=== PATIENT | female | born 1980 | race Caucasian/White ===

== ENCOUNTER 2020-10-16 08:58 | Emergency (ER) | payer MEDICAID ==
--- NOTE | 2020-10-16 09:32 | EDM.PDOC ---
ED HPI GENERAL MEDICAL PROBLEM - General Chief Complaint: Respiratory Problem Stated Complaint: SOB/NECK PAIN Time Seen by Provider: 10/16/20 09:32 Source of Information: Reports: Patient History Limitations: Reports: No Limitations - History of Present Illness INITIAL COMMENTS - FREE TEXT/NARRATIVE: 39-year-old female who is quite tearful presents to the ED complaining of shor tness of breath and nonproductive cough. She states this is been going on for 6 weeks or more. No defined history of asthma. She does not believe that she has wheezing with increased smoke in the air recently. She is identifies a rotten egg smell or seam sewer gas smell in her apartment where she resides and she believes this may be irritating her lungs. She has not had COVID-19 illness nor has she had the vaccination. Denies fever or chills. Second complaint was painful right calf which occurred while walking. Making her limp and she was concerned she may have a blood clot in her right leg. Patient is very histrionic. She has chronic epigastric abdominal pain. Chronic constipation. Complaining of headache and quite bad cervical neck pain at this time. Onset: Unknown/Unsure (Neck pain is been much worse the last 3 days. Dyspnea and cough has been going on for a lengthy period of time.) Duration: Week(s):, Chronic, Getting Worse Location: Reports: Neck (Creased cervical neck pain causing headache base of skull.), Chest (Nonproductive cough with associated feeling of dyspnea.), Lower Extremity, Right (Right lower extremity pain mid calf and she has concerns about a blood clot.) Quality: Reports: Ache, Throbbing Severity: Moderate Improves with: Reports: None Worsens with: Reports: Other Context: Reports: Other (Sudden onset of pain medial calf yesterday while walking. Increased cervical neck pain x3 days. Cough nonproductive). Denies: Activity (Condition worsens with movement particular trying to walk limping right leg.), Exercise, Lifting, Sick Contact, Trauma Associated Symptoms: Reports: Cough, Headaches, Loss of Appetite, Malaise, Nausea/Vomiting, Shortness of Breath, Weakness. 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 She states she does not use the phentermine every day as it will keep her awake all night.) Neck Pain Score (Numeric/FACES): 10 - Related Data Allergies Allergy/AdvReac Type Severity Reaction Status Date / Time No Known Allergies Allergy Verified 10/16/20 09:11 Home Meds: Home Meds Cholecalciferol (Vitamin D3) [Vitamin D3] 5,000 unit PO DAILY 10/16/20 [History] Famotidine [Pepcid] 20 mg PO BEDTIME #30 tab 10/16/20 [Rx] Multivitamin 1 each PO DAILY 10/16/20 [History] Ondansetron [Zofran ODT] 4 mg PO Q6H PRN 10/16/20 [History] Phentermine HCl 37.5 mg PO DAILY 10/16/20 [History] polyethylene glycoL 3350 [MiraLAX] 17 gm PO DAILY #1 container 10/16/20 [Rx] predniSONE [Prednisone] 20 mg PO BID #15 tablet 10/16/20 [Rx] Past Medical History Respiratory History: Reports: Asthma Gastrointestinal History: Reports: Celiac Disease, Chronic Constipation, GERD Genitourinary History: Reports: STD 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: stillborn in 2007 Musculoskeletal History: Reports: Neck Pain, Chronic Psychiatric History: Reports: Anxiety, Depression Endocrine/Metabolic History: Reports: Obesity/BMI 30+, Vitamin D Deficiency Oncologic (Cancer) History: Reports: Cervix Other Oncologic History: "scraped off cervical cancer/loop procedure" in [place] around 20 years ago - Infectious Disease History Infectious Disease History: Reports: Chicken Pox, Herpes - Past Surgical History GI Surgical History: Reports: Cholecystectomy Female Surgical History: Reports: Breast Biopsy Social & Family History - Tobacco Use Tobacco Use Status *Q: Never Tobacco User Second Hand Smoke Exposure: Yes - Caffeine Use Caffeine Use: Reports: Coffee, Tea - Recreational Drug Use Recreational Drug Use: No - Living Situation & Occupation Living situation: Reports: Single Occupation: Unemployed ED ROS GENERAL - Review of Systems Review Of Systems: See Below Constitutional: Reports: Malaise, Weakness, Fatigue, Decreased Appetite. Denies: Fever, Chills HEENT: Reports: Glasses Respiratory: Reports: Shortness of Breath, Wheezing, Cough. Denies: Pleuritic Chest Pain, Sputum, Hemoptysis, Other Cardiovascular: Reports: Blood Pressure Problem, Dyspnea on Exertion, Lightheadedness. Denies: Claudication, Edema, Orthopnea, Palpitations Endocrine: Reports: Fatigue GI/Abdominal: Reports: Abdominal Pain (Chronic constipation chronic pain primarily epigastrium left upper quadrant of the abdomen.), Constipation : Reports: Frequency. Denies: Dysuria Musculoskeletal: Reports: Neck Pain (Particularly bad the last 3 days. It is causing pain at the base of her skull and causing a headache.), Shoulder Pain, Back Pain, Other (Right calf pain causing limping gait x2 days) Skin: Reports: No Symptoms Neurological: Reports: Dizziness, Headache (Vaginal), Weakness (Generalized weakness). Denies: Confusion Psychiatric: Reports: Anxiety, Depression, Mood Lability. Denies: Suicidal Ideation Hematologic/Lymphatic: Reports: No Symptoms Immunologic: Reports: No Symptoms ED EXAM, GENERAL - Physical Exam Exam: See Below Exam Limited By: No Limitations General Appearance: Alert, WD/WN, Moderate Distress (Tearful and histrionic.), Other (Temperature 36.7. Heart rate eighty-six and sinus respiratory rate is eighteen with O2 sats of 97%. BP 116/68.) Eye Exam: Bilateral Eye: Normal Inspection (No blepharal pallor or scleral icterus.), PERRL Throat/Mouth: Other (Tongue is mildly dry and coated. She has not yet eaten today.). No: Normal Lips, Normal Teeth (*Chapped.) Head: Atraumatic, Normocephalic Neck: Normal Inspection, Limited Range of Motion (Distant range of motion particularly flexion and extension and lateral flexion. Increased pain primarily looking to the left.), Tender Lateral (Very tender lateral aspect of the neck particularly at the C1-C3 level base of her skull.). No: Carotid Bruit, Lymphadenopathy (L), Lymphadenopathy (R) Respiratory/Chest: No Respiratory Distress, Lungs Clear, Normal Breath Sounds, No Accessory Muscle Use. No: Rales, Rhonchi, Wheezing Cardiovascular: Normal Peripheral Pulses, Regular Rate, Rhythm, No Edema, No Gallop, No Murmur, No Rub Peripheral Pulses: 2+: Carotid (L), Carotid (R), Posterior Tibial (L), Posterior Tibial (R), Dorsalis Pedis (L), Dorsalis Pedis (R) GI/Abdominal: Normal Bowel Sounds, Soft, No Organomegaly, No Mass, Pelvis Stable, Tender (Mildly tender in the epigastrium), Other (Previous cholecystectomy.) Back Exam: No: CVA Tenderness (L), CVA Tenderness (R) Extremities: Other (Left lower extremity shows no pain or injury. Right lower extremity shows no edema or clinical concerns for DVT. She has point tenderness over the mid belly of the medial gastrocnemius muscle compatible with partial muscle tear. Patient reassured no sign of DVT) Neurological: Alert, Oriented, CN II-XII Intact, Normal Cognition Psychiatric: Anxious, Tearful Skin Exam: Warm, Dry, Intact, Normal Color, No Rash #1 Interpretation EKG Date: 10/16/20 Time: 10:20 Rhythm: NSR Rate (Beats/Min): 75 [place]: Normal P-Wave: Present QRS: Other (Decreased voltage limb and precordial leads incomplete right bundle branch block pattern) ST-T: Other (Repolarization abnormality most noted in leads II, III and aVF with T wave inversion noted in lead V3 only.) QT: Normal EKG Interpretation Comments: Borderline ECG Course - Vital Signs Last Recorded V/S: Last Vital Signs Temp 36.7 C 10/16/20 09:06 Pulse 86 10/16/20 09:06 Resp BP Pulse Ox 97 10/16/20 11:13 - Orders/Labs/Meds Labs: Laboratory Tests 10/16/20 10/16/20 10/16/20 Range/Units 10:15 10:15 10:15 WBC 7.61 (3.98-10.04) K/mm3 RBC 4.56 (3.98-5.22) M/mm3 Hgb 12.9 (11.2-15.7) gm/dl Hct 39.2 (34.1-44.9) % MCV 86.0 (79.4-94.8) fl MCH 28.3 (25.6-32.2) pg MCHC 32.9 (32.2-35.5) g/dl RDW Std Deviation 43.9 (36.4-46.3) fL Plt Count 321 (182-369) K/mm3 MPV 10.0 (9.4-12.3) fl Neut % (Auto) 68.5 (34.0-71.1) % Lymph % (Auto) 22.5 (19.3-51.7) % [place] % (Auto) 6.2 (4.7-12.5) % Eos % (Auto) 2.1 (0.7-5.8) Baso % (Auto) 0.7 (0.1-1.2) % Neut # (Auto) 5.22 (1.56-6.13) K/mm3 Lymph # (Auto) 1.71 (1.18-3.74) K/mm3 [place] # (Auto) 0.47 H (0.24-0.36) K/mm3 Eos # (Auto) 0.16 (0.04-0.36) K/mm3 Baso # (Auto) 0.05 (0.01-0.08) K/mm3 ESR 14 (0-20) mm/hr Sodium 141 (136-145) mEq/L Potassium 3.9 (3.5-5.1) mEq/L Chloride 107 (98-107) mEq/L Carbon Dioxide 27 (21-32) mEq/L Anion Gap 10.9 (5-15) BUN 10 (7-18) mg/dL Creatinine 0.5 L (0.55-1.02) mg/dL Est Cr Clr Drug Dosing 127.86 mL/min Estimated GFR (MDRD) > 60 (>60) mL/min BUN/Creatinine Ratio 20.0 H (14-18) Glucose 96 (70-99) mg/dL Calcium 8.5 (8.5-10.1) mg/dL Magnesium 2.0 (1.8-2.4) mg/dL Total Bilirubin 0.3 (0.2-1.0) mg/dL AST 8 L (15-37) U/L ALT 22 (14-59) U/L Alkaline Phosphatase 68 (46-116) U/L C-Reactive Protein 2.3 H* (<1.0) mg/dL NT-Pro-B Natriuret Pep (0-125) pg/mL Total Protein 6.7 (6.4-8.2) g/dl Albumin 3.2 L (3.4-5.0) g/dl Globulin 3.5 gm/dL Albumin/Globulin Ratio 0.9 L (1-2) Lipase (73-393) U/L TSH 3rd Generation 0.593 (0.358-3.74) uIU/mL Urine Color (Yellow) Urine Appearance (Clear) Urine pH (5.0-8.0) Ur Specific [place] (1.005-1.030) Urine Protein (Negative) Urine Glucose (UA) (Negative) Urine Ketones (Negative) Urine Occult Blood (Negative) Urine Nitrite (Negative) Urine Bilirubin (Negative) Urine Urobilinogen (0.2-1.0) Ur Leukocyte Esterase (Negative) Urine RBC (0-5) /hpf Urine WBC (0-5) /hpf Ur Squamous Epith Cells (0-5) /hpf Urine Bacteria (FEW) /hpf Urine Mucus (FEW) /hpf SARS-CoV-2 RNA (KEMAR) (NEGATIVE) 10/16/20 10/16/20 10/16/20 Range/Units 10:15 10:15 12:14 WBC (3.98-10.04) K/mm3 RBC (3.98-5.22) M/mm3 Hgb (11.2-15.7) gm/dl Hct (34.1-44.9) % MCV (79.4-94.8) fl MCH (25.6-32.2) pg MCHC (32.2-35.5) g/dl RDW Std Deviation (36.4-46.3) fL Plt Count (182-369) K/mm3 MPV (9.4-12.3) fl Neut % (Auto) (34.0-71.1) % Lymph % (Auto) (19.3-51.7) % [place] % (Auto) (4.7-12.5) % Eos % (Auto) (0.7-5.8) Baso % (Auto) (0.1-1.2) % Neut # (Auto) (1.56-6.13) K/mm3 Lymph # (Auto) (1.18-3.74) K/mm3 [place] # (Auto) (0.24-0.36) K/mm3 Eos # (Auto) (0.04-0.36) K/mm3 Baso # (Auto) (0.01-0.08) K/mm3 ESR (0-20) mm/hr Sodium (136-145) mEq/L Potassium (3.5-5.1) mEq/L Chloride (98-107) mEq/L Carbon Dioxide (21-32) mEq/L Anion Gap (5-15) BUN (7-18) mg/dL Creatinine (0.55-1.02) mg/dL Est Cr Clr Drug Dosing mL/min Estimated GFR (MDRD) (>60) mL/min BUN/Creatinine Ratio (14-18) Glucose (70-99) mg/dL Calcium (8.5-10.1) mg/dL Magnesium (1.8-2.4) mg/dL Total Bilirubin (0.2-1.0) mg/dL AST (15-37) U/L ALT (14-59) U/L Alkaline Phosphatase (46-116) U/L C-Reactive Protein (<1.0) mg/dL NT-Pro-B Natriuret Pep 80 (0-125) pg/mL Total Protein (6.4-8.2) g/dl Albumin (3.4-5.0) g/dl Globulin gm/dL Albumin/Globulin Ratio (1-2) Lipase 49 L (73-393) U/L TSH 3rd Generation (0.358-3.74) uIU/mL Urine Color Yellow (Yellow) Urine Appearance Clear (Clear) Urine pH 6.5 (5.0-8.0) Ur Specific [place] 1.025 (1.005-1.030) Urine Protein Negative (Negative) Urine Glucose (UA) Negative (Negative) Urine Ketones Negative (Negative) Urine Occult Blood Negative (Negative) Urine Nitrite Negative (Negative) Urine Bilirubin Negative (Negative) Urine Urobilinogen 0.2 (0.2-1.0) Ur Leukocyte Esterase Negative (Negative) Urine RBC 0-5 (0-5) /hpf Urine WBC 0-5 (0-5) /hpf Ur Squamous Epith Cells 0-5 (0-5) /hpf Urine Bacteria Moderate H (FEW) /hpf Urine Mucus Few (FEW) /hpf SARS-CoV-2 RNA (KEMAR) (NEGATIVE) 10/16/20 Range/Units 12:14 WBC (3.98-10.04) K/mm3 RBC (3.98-5.22) M/mm3 Hgb (11.2-15.7) gm/dl Hct (34.1-44.9) % MCV (79.4-94.8) fl MCH (25.6-32.2) pg MCHC (32.2-35.5) g/dl RDW Std Deviation (36.4-46.3) fL Plt Count (182-369) K/mm3 MPV (9.4-12.3) fl Neut % (Auto) (34.0-71.1) % Lymph % (Auto) (19.3-51.7) % [place] % (Auto) (4.7-12.5) % Eos % (Auto) (0.7-5.8) Baso % (Auto) (0.1-1.2) % Neut # (Auto) (1.56-6.13) K/mm3 Lymph # (Auto) (1.18-3.74) K/mm3 [place] # (Auto) (0.24-0.36) K/mm3 Eos # (Auto) (0.04-0.36) K/mm3 Baso # (Auto) (0.01-0.08) K/mm3 ESR (0-20) mm/hr Sodium (136-145) mEq/L Potassium (3.5-5.1) mEq/L Chloride (98-107) mEq/L Carbon Dioxide (21-32) mEq/L Anion Gap (5-15) BUN (7-18) mg/dL Creatinine (0.55-1.02) mg/dL Est Cr Clr Drug Dosing mL/min Estimated GFR (MDRD) (>60) mL/min BUN/Creatinine Ratio (14-18) Glucose (70-99) mg/dL Calcium (8.5-10.1) mg/dL Magnesium (1.8-2.4) mg/dL Total Bilirubin (0.2-1.0) mg/dL AST (15-37) U/L ALT (14-59) U/L Alkaline Phosphatase (46-116) U/L C-Reactive Protein (<1.0) mg/dL NT-Pro-B Natriuret Pep (0-125) pg/mL Total Protein (6.4-8.2) g/dl Albumin (3.4-5.0) g/dl Globulin gm/dL Albumin/Globulin Ratio (1-2) Lipase (73-393) U/L TSH 3rd Generation (0.358-3.74) uIU/mL Urine Color (Yellow) Urine Appearance (Clear) Urine pH (5.0-8.0) Ur Specific [place] (1.005-1.030) Urine Protein (Negative) Urine Glucose (UA) (Negative) Urine Ketones (Negative) Urine Occult Blood (Negative) Urine Nitrite (Negative) Urine Bilirubin (Negative) Urine Urobilinogen (0.2-1.0) Ur Leukocyte Esterase (Negative) Urine RBC (0-5) /hpf Urine WBC (0-5) /hpf Ur Squamous Epith Cells (0-5) /hpf Urine Bacteria (FEW) /hpf Urine Mucus (FEW) /hpf SARS-CoV-2 RNA (KEMAR) Negative (NEGATIVE) Meds: Medications Discontinued Medications Generic Name Dose Route Start Last Admin Trade Name Freq PRN Reason Stop Dose Admin Albuterol/Ipratropium 3 ml 10/16/20 11:13 10/16/20 11:33 Albuterol/Ipratropium 3.0-0.5 Mg/3 Ml Neb Soln NEB 10/16/20 11:14 3 ml ONETIME ONE Administration Hydromorphone HCl 0.5 mg 10/16/20 09:57 10/16/20 10:34 Hydromorphone 0.5 Mg/0.5 Ml Syringe IVPUSH 10/16/20 09:58 0.5 mg ONETIME ONE Administration Dextrose/Sodium Chloride 1,000 mls @ 500 mls/hr 10/16/20 10:00 10/16/20 10:34 Dextrose 5%-Normal Saline IV 500 mls/hr ASDIRECTED PANCHITO Administration Lorazepam 0.5 mg 10/16/20 09:59 10/16/20 10:34 Lorazepam 2 Mg/Ml Sdv IVPUSH 10/16/20 10:00 0.5 mg ONETIME ONE Administration Lorazepam 0.5 mg 10/16/20 11:13 10/16/20 11:51 Lorazepam 2 Mg/Ml Sdv IVPUSH 10/16/20 11:14 0.5 mg ONETIME ONE Administration Ondansetron HCl 4 mg 10/16/20 09:57 10/16/20 10:35 Ondansetron 4 Mg/2 Ml Sdv IVPUSH 10/16/20 09:58 4 mg ONETIME ONE Administration - Radiology Interpretation Free Text/Narrative:: 39-year-old female presents to the ED with a host of concerns. She is tearful and quite histrionic in her presentation. Chief complaint was cervical neck pain particular the base of her skull causing headache. She feels dyspneic and has a nonproductive cough for several weeks. She has never had COVID-19 illness nor the vaccine. No fever or chills. She believes dyspnea is set off by rotten egg smell or seam sewer gas in her apartment where she resides. Other concern was right calf pain and concern for DVT. Examination reveals pain well localized to the mid belly of the medial gastrocnemius muscle partial muscle tear in this area. No sign of DVT. Plan D5 normal saline at 500 mils an hour. She has not yet eaten or drank today. Routine labs to be done. Given Dilaudid 0.5 mg IV with Zofran 4 mg IV for her neck pain relief. Chest x-ray and COVID-19 screen to be done. - Re-Assessments/Exams Free Text/Narrative Re-Assessment/Exam: 10/16/20 11:15 White blood cell count is 7.61 with auto differential showing 68.5% neutrophils. Hemoglobin is 12.9 with hematocrit of 39.2. Platelet count is 321,000. Sodium is 141 with a potassium of 3.9. Chloride is 107 with a bicarb of 27. Anion gap is 10.9. BUN is 10 with a creatinine of 0.5 GFR is greater than 60. Glucose is 96. Calcium is 8.5. Magnesium is 2.0. Liver function is normal. C-reactive protein is mildly elevated at 2.3. Total protein 6.7 with an albumin fraction slightly low at 3.2. TSH is normal at 0.593. Patient is still having upper GI discomfort and still feels dyspneic. We'll repeat Ativan 0.5 mg IV with DuoNeb. 10/16/20 11:19 Portable chest x-ray reveals normal cardiac silhouette and mediastinum. There is a diffuse vascular congestion pattern without pleural effusion. Possibly secondary to portable technique. A BNP will be checked. X- ray of the abdomen reveal increased stool right hemicolon and hepatic flexure. Calcification seen on the left side of the pelvis most likely represents a phlebolith. No bowel obstruction identified. Mild joint space narrowing is a ppreciated within the right hip. 10/16/20 12:42 Urinalysis shows moderate bacteria but leukocyte esterase is negative. KUB reveals increased stool throughout the right colon and hepatic flexure. BNP is 80. 10/16/20 14:10: Patient has had satisfactory relief of cervical neck pain. She is intolerant to NSAIDs with previous peptic ulcer disease. I am going to discharge her on prednisone 20 mg twice daily for 5 days and then once daily in the morning only for another 5 days to try and gain control of cervical neck pain. We will place her on Pepcid 20 mg once daily at bedtime for GI protect ion. She does have constipation causing right upper quadrant and epigastric abdominal pain. Advise MiraLAX powder 17 g daily. She is to follow-up with primary care provider in 7 to 10 days time for review of cervical neck pain. Departure - Departure Time of Disposition: 14:02 Disposition: Home, Self-Care 01 Condition: Fair Clinical Impression: Cervical pain (neck), Constipation by delayed colonic transit Abdominal pain Qualifiers: Abdominal location: upper abdomen, unspecified Qualified Code(s): R10.10 - Upper abdominal pain, unspecified - Discharge Information *PRESCRIPTION DRUG MONITORING PROGRAM REVIEWED*: Not Applicable *COPY OF PRESCRIPTION DRUG MONITORING REPORT IN PATIENT LISA: Not Applicable Prescriptions: polyethylene glycoL 3350 [MiraLAX] 17 gm PO DAILY #1 container Famotidine [Pepcid] 20 mg PO BEDTIME #30 tab predniSONE [Prednisone] 20 mg PO BID #15 tablet Instructions: Osteoarthritis, Constipation, Adult, [id number] Referrals: Jodi Miller MD [Primary Care Provider] - Forms: ED Department Discharge Additional Instructions: Evaluation in the emergency room today in regards to multiple problems that should be addressed at the clinic. One is increasing cervical neck pain secondary to osteoarthritic changes and degenerative disc disease. You were treated in the emergency room with anti-inflammatory medication and pain medication. #2 problem is abdominal pain secondary to chronic constipation confirmed by x-ray today. There is increased stool throughout the right hemicolon up underneath your liver and into the upper abdomen or epigastrium. You will need to take MiraLAX powder which is 17 g or 1 scoop daily to prevent constipation from occurring. The needs to be taken daily to work properly. It can be taken with any juice of choice. It should produce regular bowel movements almost every day or every second day. You will need to take medication prednisone 20 mg twice daily with breakfast and supper for 5 days and then once in the morning only for another 5 days to reduce pain and inflammation in your neck and back. You will need to take Pepcid 20 mg once daily at bedtime to protect stomach lining from medications used to reduce inflammation. You will need to follow-up with your primary care physician in the clinic in 10 days time Sepsis Event Note (ED) - Evaluation Sepsis Screening Result: No Definite Risk - Focused Exam Vital Signs: Vital Signs Temp Pulse Pulse Ox Pulse Ox 10/16/20 11:13 97 10/16/20 09:06 36.7 C 86 97
[2020-10-16] MEDS ORDERED: HYDROmorphone 0.5 MG/0.5 ML Syringe IVPUSH ONE (09:57)
[2020-10-16] MEDS ORDERED: Ondansetron 4 MG/2 ML SDV IVPUSH ONE (09:57)
[2020-10-16] MEDS ORDERED: LORazepam 2 MG/ML SDV IVPUSH ONE ×2 (09:59→11:13)
[2020-10-16] MEDS ORDERED: Dextrose 5%-0.9% NaCl 1,000 ML IV SCH (10:00)
[2020-10-16] MEDS ORDERED: Albuterol/Ipratropium 3.0-0.5 MG/3 ML Neb Soln NEB ONE (11:13)
--- NOTE | 2020-10-16 11:28 | CR ---
Chest: Portable view of the chest was obtained. Comparison: No prior chest imaging is available. Heart size and mediastinum are within normal limits for portable technique. Lungs are clear with no acute parenchymal change. No acute osseous abnormality is appreciated. Impression: 1. Nothing acute is appreciated on portable chest x-ray. Diagnostic code #1
--- NOTE | 2020-10-16 11:51 | CR ---
Abdomen: Supine view of the abdomen was obtained. Comparison: No prior abdominal imaging is available. Calcification is seen with the left side of the pelvis most likely representing phlebolith. Surgical clips are seen within the upper right abdomen. Bowel gas pattern is normal. Mild joint space narrowing is seen within the right hip. Impression: 1. Findings as noted above. 2. Nothing acute is seen on supine abdominal x-ray. Diagnostic code #2
== END 2020-10-16 14:31 | disposition home or self-care (01) ==
LOC: JD.ED 08:58
DX: K59.01 Slow transit constipation (principal); M54.2 Cervicalgia; I45.10 Unspecified right bundle-branch block; J45.909 Unspecified asthma, uncomplicated; E66.9 Obesity, unspecified; Z68.42 Body mass index [BMI] 45.0-49.9, adult; Z77.22 Contact with and (suspected) exposure to environmental tobacco smoke (acute) (chronic); Z79.899 Other long term (current) drug therapy; Z20.822 Contact with and (suspected) exposure to COVID-19
CPT/HCPCS: 36415; 71045; 74018; 80053; 81001; 83690; 83735; 83880; 84443; 85025; 85652; 86140; 87635; 93005; 94640; 96374; 96375; 96376; 99285; J1170; J2060; J2405; J7042; 93010; 99284; J7620-GY; U0002

== ENCOUNTER 2020-10-27 16:45 | Emergency (ER) | payer MEDICAID ==
[2020-10-27] MEDS ORDERED: Sodium Chloride 0.9% 10 ML Syringe FLUSH PRN (17:08)
[2020-10-27] MEDS ORDERED: Ketorolac 30 MG/ML SDV IVPUSH ONE (17:11)
--- NOTE | 2020-10-27 17:45 | EDM.PDOC ---
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 As well as low back pain. She reports that she began her period on Thursday that appears normally last 3 days. It has been 6 days and she continues to have vaginal bleeding. Reports that she has had low back pain for few weeks but denies any known injury. She was seen in this emergency department 2 weeks ago for neck and abdominal pain. Started on prednisone which she just completed yesterday. She feels this was causing her back pain. She has had no fever, chills, nausea, or vomiting. Denies any significant abdominal discomfort. She has not taken any [id number] medications for pain. She is not sexually active and denies possibility of . 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 in 2007 Musculoskeletal History: Reports: Neck Pain, Chronic Psychiatric History: Reports: Anxiety, Depression Endocrine/Metabolic History: Reports: Obesity/BMI 30+, Vitamin D Deficiency Oncologic (Cancer) History: Reports: Cervix Other Oncologic History: "scraped off cervical cancer/loop procedure" in [place] around 20 years ago - Infectious Disease History Infectious Disease History: Reports: Chicken Pox, Herpes - Past Surgical History GI Surgical History: Reports: Cholecystectomy Female Surgical History: Reports: Breast Biopsy Social & Family History - Tobacco Use Tobacco Use Status *Q: Never Tobacco User Second Hand Smoke Exposure: No - Caffeine Use Caffeine Use: Reports: Coffee, Tea - Recreational Drug Use Recreational Drug Use: No - Living Situation & Occupation Living situation: Reports: Single Occupation: Unemployed ED ROS GENERAL - Review of Systems Review Of Systems: Comprehensive ROS is negative, except as noted in HPI. ED EXAM - Physical Exam Exam: See Below Exam Limited By: No Limitations General Appearance: Alert, Anxious, Mild Distress, Other (histrionic) Respiratory/Chest: No Respiratory Distress, Lungs Clear, Normal Breath Sounds, No Accessory Muscle Use, Chest Non-Tender Cardiovascular: Normal Peripheral Pulses, Regular Rate, Rhythm, No Edema, No Gallop, No JVD, No Murmur, No Rub GI/Abdominal Exam: Normal Bowel Sounds, Soft, Non-Tender, No Organomegaly, No Distention, No Abnormal Bruit, No Mass, Pelvis Stable Back Exam: Normal Inspection, Other (tenderness throughout bilateral low back and around bilateral hips) Neurological: Alert, Oriented, CN II-XII Intact, Normal Cognition, Normal Gait, Normal Reflexes, No Motor/Sensory Deficits Psychiatric: Normal Affect, Normal Mood Skin Exam: Warm, Dry, Intact, Normal Color, No Rash Course - Vital Signs Last Recorded V/S: Last Vital Signs Temp 99.1 F 10/27/20 16:55 Pulse 122 H 10/27/20 16:55 Resp 16 10/27/20 16:55 BP 100/55 L 10/27/20 16:55 Pulse Ox 98 10/27/20 16:55 - Orders/Labs/Meds Labs: Laboratory Tests 10/27/20 10/27/20 10/27/20 Range/Units 17:08 17:20 17:20 WBC 13.51 H (3.98-10.04) K/mm3 RBC 4.68 (3.98-5.22) M/mm3 Hgb 13.1 (11.2-15.7) gm/dl Hct 40.7 (34.1-44.9) % MCV 87.0 (79.4-94.8) fl MCH 28.0 (25.6-32.2) pg MCHC 32.2 (32.2-35.5) g/dl RDW Std Deviation 44.8 (36.4-46.3) fL Plt Count 410 H D (182-369) K/mm3 MPV 10.3 (9.4-12.3) fl Neut % (Auto) 75.5 H (34.0-71.1) % Lymph % (Auto) 17.8 L (19.3-51.7) % Early % (Auto) 4.3 L (4.7-12.5) % Eos % (Auto) 1.2 (0.7-5.8) Baso % (Auto) 0.5 (0.1-1.2) % Neut # (Auto) 10.21 H (1.56-6.13) K/mm3 Lymph # (Auto) 2.40 (1.18-3.74) K/mm3 Early # (Auto) 0.58 H (0.24-0.36) K/mm3 Eos # (Auto) 0.16 (0.04-0.36) K/mm3 Baso # (Auto) 0.07 (0.01-0.08) K/mm3 Manual Slide Review Sodium 141 (136-145) mEq/L Potassium 3.8 (3.5-5.1) mEq/L Chloride 105 (98-107) mEq/L Carbon Dioxide 28 (21-32) mEq/L Anion Gap 11.8 (5-15) BUN 11 (7-18) mg/dL Creatinine 0.8 (0.55-1.02) mg/dL Est Cr Clr Drug Dosing 79.91 mL/min Estimated GFR (MDRD) > 60 (>60) mL/min BUN/Creatinine Ratio 13.8 L (14-18) Glucose 139 H (70-99) mg/dL Calcium 7.8 L (8.5-10.1) mg/dL Total Bilirubin 0.6 (0.2-1.0) mg/dL AST 15 (15-37) U/L ALT 23 (14-59) U/L Alkaline Phosphatase 84 (46-116) U/L Total Protein 7.2 (6.4-8.2) g/dl Albumin 3.2 L (3.4-5.0) g/dl Globulin 4.0 gm/dL Albumin/Globulin Ratio 0.8 L (1-2) HCG, Qual (NEGATIVE) Urine Color Margo H (Yellow) Urine Appearance Clear (Clear) Urine pH 6.0 (5.0-8.0) Ur Specific [place] 1.025 (1.005-1.030) Urine Protein 1+ H (Negative) Urine Glucose (UA) Negative (Negative) Urine Ketones Trace H (Negative) Urine Occult Blood 2+ H (Negative) Urine Nitrite Negative (Negative) Urine Bilirubin Negative (Negative) Urine Urobilinogen 1.0 (0.2-1.0) Ur Leukocyte Esterase Negative (Negative) Urine RBC 10-20 H (0-5) /hpf Urine WBC 5-10 H (0-5) /hpf Ur Squamous Epith Cells 0-5 (0-5) /hpf Urine Bacteria Few (FEW) /hpf Urine Mucus Moderate H (FEW) /hpf 10/27/20 Range/Units 17:20 WBC (3.98-10.04) K/mm3 RBC (3.98-5.22) M/mm3 Hgb (11.2-15.7) gm/dl Hct (34.1-44.9) % MCV (79.4-94.8) fl MCH (25.6-32.2) pg MCHC (32.2-35.5) g/dl RDW Std Deviation (36.4-46.3) fL Plt Count (182-369) K/mm3 MPV (9.4-12.3) fl Neut % (Auto) (34.0-71.1) % Lymph % (Auto) (19.3-51.7) % Early % (Auto) (4.7-12.5) % Eos % (Auto) (0.7-5.8) Baso % (Auto) (0.1-1.2) % Neut # (Auto) (1.56-6.13) K/mm3 Lymph # (Auto) (1.18-3.74) K/mm3 Early # (Auto) (0.24-0.36) K/mm3 Eos # (Auto) (0.04-0.36) K/mm3 Baso # (Auto) (0.01-0.08) K/mm3 Manual Slide Review Sodium (136-145) mEq/L Potassium (3.5-5.1) mEq/L Chloride (98-107) mEq/L Carbon Dioxide (21-32) mEq/L Anion Gap (5-15) BUN (7-18) mg/dL Creatinine (0.55-1.02) mg/dL Est Cr Clr Drug Dosing mL/min Estimated GFR (MDRD) (>60) mL/min BUN/Creatinine Ratio (14-18) Glucose (70-99) mg/dL Calcium (8.5-10.1) mg/dL Total Bilirubin (0.2-1.0) mg/dL AST (15-37) U/L ALT (14-59) U/L Alkaline Phosphatase (46-116) U/L Total Protein (6.4-8.2) g/dl Albumin (3.4-5.0) g/dl Globulin gm/dL Albumin/Globulin Ratio (1-2) HCG, Qual Negative (NEGATIVE) Urine Color (Yellow) Urine Appearance (Clear) Urine pH (5.0-8.0) Ur Specific [place] (1.005-1.030) Urine Protein (Negative) Urine Glucose (UA) (Negative) Urine Ketones (Negative) Urine Occult Blood (Negative) Urine Nitrite (Negative) Urine Bilirubin (Negative) Urine Urobilinogen (0.2-1.0) Ur Leukocyte Esterase (Negative) Urine RBC (0-5) /hpf Urine WBC (0-5) /hpf Ur Squamous Epith Cells (0-5) /hpf Urine Bacteria (FEW) /hpf Urine Mucus (FEW) /hpf Meds: Medications Discontinued Medications Generic Name Dose Route Start Last Admin Trade Name Freq PRN Reason Stop Dose Admin Ketorolac Tromethamine 30 mg 10/27/20 17:11 10/27/20 17:26 Ketorolac 30 Mg/Ml Sdv IVPUSH 10/27/20 17:12 30 mg ONETIME ONE Administration Sodium Chloride 10 ml 10/27/20 17:08 10/27/20 17:26 Sodium Chloride 0.9% 10 Ml Syringe FLUSH 10 ml ASDIRECTED PRN Administration Keep Vein Open - Re-Assessments/Exams Free Text/Narrative Re-Assessment/Exam: Patient is a 39-year-old female presenting to the emergency department with complaints of vaginal bleeding and low back pain. She started her period on Thursday and states that normally only last 3 days, however she has been bleeding for 6. Reports she is been having problems with low back pain for the last 2 weeks, however worsened today. She did receive the Moderna Covid vaccination yesterday. She has mild tenderness to palpation bilateral low back. States the pain wraps around her hips. Denies any significant abdominal pain or pelvic cramping. I have ordered blood work, test, urinalysis. We will give her Toradol 30 mg IV. 10/27/20 18:56 Hematology significant for WBC elevated 13.51. Otherwise unremarkable. test is negative. Urinalysis shows 2+ occult blood but is negative for infection. This is likely due to her menstrual bleeding. Patient's back pain is significantly improved after the Toradol. We will discharge her home. Discussed that if she continues to have vaginal bleeding past Thursday or Thursday, recommend follow-up in the clinic. I will send a prescription for Naprosyn, however she will not build to pick it up till Thursday. Recommend [id number] Tylenol and ibuprofen as needed for discomfort. Discharge instructions as documented. Departure - Departure Time of Disposition: 18:58 Disposition: Home, Self-Care 01 Condition: Good Clinical Impression: Menorrhagia with regular cycle Back pain Qualifiers: Back pain location: low back pain Chronicity: acute Back pain laterality: bilateral Sciatica presence: without sciatica Qualified Code(s): M54.5 - Low back pain - Discharge Information *PRESCRIPTION DRUG MONITORING PROGRAM REVIEWED*: No *COPY OF PRESCRIPTION DRUG MONITORING REPORT IN PATIENT LISA: No Instructions: Acute Back Pain, Adult, Metrorrhagia Referrals: Jodi Miller MD [Primary Care Provider] - Forms: ED Department Discharge Additional Instructions: You were seen in the emergency department today for longer than normal. And low back pain. Work-up included blood work, test, and urinalysis. Results of your work-up were found to be normal. You do not have urinary tract infection. While in the ER, you received Toradol for pain through your IV. This did improve your symptoms. Prescription for naproxen has been sent to your pharmacy. Pick this up on Thursday and use as prescribed should your pain continue. In the meantime, you may use [id number] Tylenol or ibuprofen as needed for discomfort. If vaginal bleeding does not resolve by Thursday or Thursday of this week, recommend follow-up in the clinic. Return to ER for new or worsening symptoms of concern Sepsis Event Note (ED) - Evaluation Sepsis Screening Result: No Definite Risk
== END 2020-10-27 19:15 | disposition home or self-care (01) ==
LOC: JD.ED 16:45
DX: N92.0 Excessive and frequent menstruation with regular cycle (principal); E66.9 Obesity, unspecified; Z68.42 Body mass index [BMI] 45.0-49.9, adult
CPT/HCPCS: 36415; 80053; 81001; 84703; 85025; 96374; 99284; J1885; 99283

== ENCOUNTER 2020-12-31 10:41 | Day surgery (SDC) | payer MEDICAID ==
--- NOTE | 2020-12-31 07:52 | PCM.PREANE ---
Preanesthetic Assessment - Procedure Proposed Procedure: EGD and Colonoscopy - Anesthesia/Transfusion/Family Hx Anesthesia History: Prior Anesthesia Without Reaction Family History of Anesthesia Reaction: No Transfusion History: No Prior Transfusion(s) Intubation History: Unknown - Review of Systems General: No Symptoms (Morbid Obesity: Last dose of phenteramine 12/20/2020) Pulmonary: No Symptoms (COPD: last used albuterol inhaler: this am prior to procedure. ETOH: rarely, Medical marijuana for nausea treatment: 2 weeks ago. ), Shortness of Breath, Cough (dry cough) Cardiovascular: No Symptoms, Palpitations (from phenteramine/albuterol), Dyspnea on Exertion Gastrointestinal: No Symptoms (GERD-controlled), Abdominal Pain (010, today.), Constipation (chronic), Difficulty Swallowing, Nausea (chronic nausea) Neurological: No Symptoms, Headache (occasional) Other: Reports: None, Easy Bleeding, Easy Bruising, Sinus Problem (seasonal allergies/rhinitis), Neck Pain (12/23), Depression, Anxiety - Physical Assessment NPO Status Date: 12/30/20 NPO Status Time: 22:30 Vital Signs: HR: 74 Sat: 98% Temp: 97.8 B/P: 108/45 Resp: 16 Height: 1.63 m Weight: 115.5 kg ASA Class: 3 Mental Status: Alert & Oriented x3 Airway Class: Mallampati = 2 Dentition: Reports: Normal Dentition, Caries Thyro-Mental Finger Breadths: 3 Mouth Opening Finger Breadths: 3 ROM/Head Extension: Full Lungs: Clear to Auscultation, Normal Respiratory Effort Cardiovascular: Regular Rate, Regular Rhythm, No Murmurs - Lab Values: All labs reviewed and noted and within acceptable ranges to proceed with scheduled procedure. - Imaging/EKG Impressions: EK10/16/2020: SR rate=75, Incomplete RBBB, Repolorization abnormality II, III, AVF. PFT's: minimal obstructive airway disease- peripheral. - Allergies Allergies/Adverse Reactions: Allergies Allergy/AdvReac Type Severity Reaction Status Date / Time No Known Allergies Allergy Verified 12/28/20 11:50 - Anesthesia Plan Pre-Op Medication Ordered: None - Acknowledgements Anesthesia Type Planned: MAC Pt an Appropriate Candidate for the Planned Anesthesia: Yes Alternatives and Risks of Anesthesia Discussed w Pt/Guardian: Yes Pt/Guardian Understands and Agrees with Anesthesia Plan: Yes PreAnesthesia Questionnaire HEENT History: Reports: None Cardiovascular History: Reports: None Respiratory History: Reports: Asthma, COPD, SOB Gastrointestinal History: Reports: Celiac Disease, Chronic Constipation, GERD, Other (See Below) Other Gastrointestinal History: chronic nausea and constipation Genitourinary History: Reports: None 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) Other OB/BYN History: breast biopsy, stillborn, Musculoskeletal History: Reports: None Neurological History: Reports: None Psychiatric History: Reports: Depression Endocrine/Metabolic History: Reports: Obesity/BMI 30+ Hematologic History: Reports: None Immunologic History: Reports: None Oncologic (Cancer) History: Reports: None Other Oncologic History: "scraped off cervical cancer/loop procedure" in [place] around 20 years ago Dermatologic History: Reports: Cellulitis - Infectious Disease History Infectious Disease History: Reports: None - Past Surgical History Head Surgeries/Procedures: Reports: None HEENT Surgical History: Reports: None Cardiovascular Surgical History: Reports: None Respiratory Surgical History: Reports: None GI Surgical History: Reports: Cholecystectomy Female Surgical History: Reports: None Male Surgical History: Reports: None Endocrine Surgical History: Reports: None Neurological Surgical History: Reports: None Musculoskeletal Surgical History: Reports: None Oncologic Surgical History: Reports: None Dermatological Surgical History: Reports: None - SUBSTANCE USE Tobacco Use Status *Q: Never Tobacco User Recreational Drug Use History: No - HOME MEDS Home Medications: Home Meds Ondansetron [Zofran ODT] 4 mg PO Q6H PRN 10/16/20 [History] polyethylene glycoL 3350 [MiraLAX] 17 gm PO DAILY #1 container 10/16/20 [Rx] Albuterol Sulfate [Albuterol Sulfate HFA] 1 - 2 puff INH QID PRN 12/28/20 [History] Fluticasone/Salmeterol [Advair 250-50] 1 puff INH BID 12/28/20 [History] Lubiprostone [Amitiza] 24 mcg PO DAILY 12/28/20 [History] Omeprazole 40 mg PO DAILY 12/28/20 [History] Phentermine HCl 37.5 mg PO DAILY 12/28/20 [History] valACYclovir HCl [Valtrex] 500 mg PO BID PRN 12/28/20 [History] - CURRENT (IN HOUSE) MEDS Current Meds: Current Medications Lactated Ringer's (Ringers, Lactated) 1,000 mls @ 125 mls/hr IV ASDIRECTED PANCHITO Stop: 12/31/20 23:00 Lidocaine/Sodium Bicarbonate (Lidocaine 1%/Sod Bicarbonate In Ns 8.4% 1 Ml Syringe) 0.25 ml IDERM ONETIME PRN PRN Reason: Prior to IV Start Stop: 12/31/20 18:00 Sodium Chloride (Sodium Chloride 0.9% 10 Ml Syringe) 10 ml FLUSH ASDIRECTED PRN PRN Reason: Keep Vein Open Stop: 12/31/20 18:00
[~2020-12-31 10:41] MED LIST: Lactated Ringers 1,000 ML IV SCH; Lidocaine 1%/Sod Bicarbonate in NS 8.4% 1 ML Syringe IDERM PRN; Sodium Chloride 0.9% 10 ML Syringe FLUSH PRN
[2020-12-31] MEDS ORDERED: Propofol 200 MG/20 ML SDV ONE ×5 (11:37→13:56)
[2020-12-31] MEDS ORDERED: Midazolam 1 MG/ML 2 ML SDV ONE (13:00)
[2020-12-31] MEDS ORDERED: Lidocaine 1% 6 ML ONE (13:08)
[2020-12-31] MEDS ORDERED: Lactated Ringers 1,000 ML ONE (13:53)
[2020-12-31] MEDS ORDERED: Ondansetron 4 MG/2 ML SDV ONE (14:11)
--- NOTE | 2020-12-31 14:26 | PCM48HPAN ---
Post Anesthesia Note - EVALUATION WITHIN 48HRS OF ANESTHETIC Vital Signs in Normal Range: Yes Patient Participated in Evaluation: Yes Respiratory Function Stable: Yes Airway Patent: Yes Cardiovascular Function Stable: Yes Hydration Status Stable: Yes Pain Control Satisfactory: Yes Nausea and Vomiting Control Satisfactory: Yes Mental Status Recovered: Yes Vital Signs: Vital signs: 123/84 HR 83 RR 16 97.4 100% 2 liters
--- NOTE | 2020-12-31 15:38 | PROC ---
DATE OF OPERATION: 12/31/2020 SURGEON: Danya Simental MD PREOPERATIVE DIAGNOSES: 1. Gastroesophageal reflux disease. 2. Chronic constipation. 3. Suspected celiac disease. POSTOPERATIVE DIAGNOSES: 1. Small hiatal hernia. 2. Polyps and hemorrhoids. OPERATION PERFORMED: 1. Esophagogastroduodenoscopy. 2. Colonoscopy. COMPLICATIONS: None. ESTIMATED BLOOD LOSS: Minimal. FINDINGS: There was LA grade A esophagitis. Small hiatal hernia. No other abnormalities in the upper GI. Colonoscopy showed grade 2 internal hemorrhoids and two 2 to 3 mm polyps and no other abnormalities. INDICATION AND CONSENT: The patient is a 40-year-old female with chronic constipation. The patient had been evaluated by GI and celiac serologies were positive. The patient was recommended to undergo EGD and colonoscopy and wanted to undergo these procedures locally. Therefore, was seen in the office. Findings confirmed and they discussed risks, benefits, and alternatives for the procedures, and informed consent was obtained. DETAILS OF PROCEDURE: The patient was taken to the procedure room, placed in left lateral decubitus position. Time-out was performed. Monitored anesthesia care was induced. Bite- block was placed. EGD was performed by inserting a scope into the mouth and taking it all the way to the second portion of duodenum which appeared normal. Biopsies were taken here to confirm celiac disease. The first portion of duodenum and duodenal bulb appeared normal and the antrum normal. The fundus and body of the stomach appeared normal. On retroflexion, there was some small sliding hiatal hernia in the GE junction which was at 37 cm. There was some mild gastritis consistent with LA grade A. Biopsies were taken here to confirm inflammation. The entire esophagus appeared normal. Air was suctioned out and this part of the procedure was concluded. Then, we paid attention to the colonoscopy. Perianal exam was normal. Digital rectal exam was normal. The scope was inserted and taken all the way to the cecum. The scope was difficult to maneuver due to significant looping. Therefore, the patient was turned supine to be able to assist with the passage of the scope. Eventually, it was taken all the way to the cecum. The ileocecal valve and appendiceal orifice were photographed. The prep for this patient was adequate enough to be able to see polyps greater than 0.4 mm. Due to chronic constipation, random biopsies were taken. These were taken from the cecum, ascending colon, transverse, descending, sigmoid, and rectum. These were all taken with cold forceps. In the transverse colon, there was a 3 mm semi-pedunculated polyp and this was taken with cold forceps. In the sigmoid also, there was another 2 mm polyp that was taken with the cold forceps. No other polyps. No other abnormalities. On retroflexion, we confirmed grade 2 nonbleeding internal hemorrhoids. Air was suctioned off from the rectum and procedure was concluded. The patient to be allowed to return home and follow up in clinic in 2 weeks for pathology discussion and may be referred back to GI for further treatment. ISABEL /[id number] JENA
== END 2020-12-31 15:03 | disposition home or self-care (01) ==
LOC: JD.SDS 10:41
PROVIDERS: ATTEND Surgery
DX: D12.3 Benign neoplasm of transverse colon (principal); K59.09 Other constipation; D72.820 Lymphocytosis (symptomatic); K44.9 Diaphragmatic hernia without obstruction or gangrene; K21.00 Gastro-esophageal reflux disease with esophagitis, without bleeding; J44.9 Chronic obstructive pulmonary disease, unspecified; K64.8 Other hemorrhoids; J45.20 Mild intermittent asthma, uncomplicated; E66.9 Obesity, unspecified; F41.9 Anxiety disorder, unspecified; F32.A Depression, unspecified; Z68.42 Body mass index [BMI] 45.0-49.9, adult; Z79.899 Other long term (current) drug therapy
CPT/HCPCS: 43239; 45380; 81025; J2250; J2405; J2704; J7120; 00813

== ENCOUNTER 2021-08-04 16:59 | Emergency (ER) | payer MEDICAID ==
[2021-08-04] MEDS ORDERED: Ketorolac 60 MG/2 ML SDV IM ONE (17:25)
[2021-08-04] MEDS ORDERED: Magnesium Citrate Solution 296 ML Bottle PO ONE (18:44)
== END 2021-08-04 18:52 | disposition home or self-care (01) ==
LOC: JD.ED 16:59
DX: K59.01 Slow transit constipation (principal); M54.2 Cervicalgia; M54.50 Low back pain, unspecified; J44.9 Chronic obstructive pulmonary disease, unspecified; E66.9 Obesity, unspecified; Z68.41 Body mass index [BMI] 40.0-44.9, adult
CPT/HCPCS: 71046; 74018; 96372; 99283; A9270; J1885

== ENCOUNTER 2022-06-22 12:17 | Emergency (ER) | payer MEDICAID ==
[2022-06-22] MEDS ORDERED: Dicyclomine 10 MG Cap PO ONE (14:10)
[2022-06-22] MEDS ORDERED: Polyethylene Glycol/Electrolytes 4,000 ML Bottle PO ONE (15:12)
[2022-06-22] MEDS ORDERED: Glycerin Adult 2 GM Supp RECTAL ONE (15:13)
== END 2022-06-22 15:37 | disposition home or self-care (01) ==
LOC: JD.ED 12:17
DX: K59.00 Constipation, unspecified (principal); J44.9 Chronic obstructive pulmonary disease, unspecified; E66.9 Obesity, unspecified; Z68.42 Body mass index [BMI] 45.0-49.9, adult
CPT/HCPCS: 74019; 99284; A9270; 99283

== ENCOUNTER 2022-07-25 12:30 | Emergency (ER) | payer MEDICAID ==
[2022-07-25 13:04] LABS: BASOPHILS ABSOLUTE AUTO 0.07 K/mm3 (0.01-0.08); BASOPHILS PERCENT AUTO 0.8 % (0.1-1.2); EOSINOPHILS ABSOLUTE AUTO 0.27 K/mm3 (0.04-0.36); HEMATOCRIT 42.7 % (34.1-44.9); HEMOGLOBIN 13.8 gm/dl (11.2-15.7); IMMATURE GRAN ABSOLUTE AUTO 0.04 K/mm3 (0.00-0.10); IMMATURE GRAN PERCENT AUTO 0.4 % (<=1.0); LYMPHOCYTES ABSOLUTE AUTO 2.25 K/mm3 (1.18-3.74); LYMPHOCYTES PERCENT AUTO 24.8 % (19.3-51.7); MEAN CORPUSCULAR HEMOGLOBIN 28.2 pg (25.6-32.2); MEAN CORPUSCULAR HGB CONC 32.3 g/dl (32.2-35.5); MEAN CORPUSCULAR VOLUME 87.1 fl (79.4-94.8); MONOCYTES ABSOLUTE AUTO 0.51 K/mm3 (0.24-0.36); MONOCYTES PERCENT AUTO 5.6 % (4.7-12.5); NEUTROPHILS ABSOLUTE AUTO 5.94 K/mm3 (1.56-6.13); NEUTROPHILS PERCENT AUTO 65.4 % (34.0-71.1); PLATELET COUNT,PLT 333 K/mm3 (182-369); WHITE BLOOD CELL COUNT,WBC 9.08 K/mm3 (3.98-10.04)
[2022-07-25 13:23] LABS: A/G RATIO 0.8 (1-2); ALANINE AMINOTRANSFERASE,ALT 24 U/L (14-59); ALBUMIN 3.2 g/dl (3.4-5.0); ALKALINE PHOSPHATASE 67 U/L (46-116); ANION GAP 12.6 (5-15); ASPARTATE AMNIOTRANSFERASE,AST 14 U/L (15-37); BILIRUBIN TOTAL 0.4 mg/dL (0.2-1.0); BLOOD UREA NITROGEN,BUN 9 mg/dL (7-18); CALCIUM 8.4 mg/dL (8.5-10.1); CARBON DIOXIDE,CO2 26 mEq/L (21-32); CHLORIDE,CL 102 mEq/L (98-107); CREATININE 0.6 mg/dL (0.55-1.02); ESTIMATED GFR 114 mL/min (>60); GLUCOSE RANDOM 85 mg/dL (70-99); POTASSIUM,K 3.6 mEq/L (3.5-5.1); PROTEIN TOTAL,TP 7.3 g/dl (6.4-8.2); SODIUM,NA 137 mEq/L (136-145)
[2022-07-25 13:24] LABS: BARBITURATE SCREEN,URINE NEGATIVE (CUTOFF=200); BENZODIAZEPINES SCREEN,URINE NEGATIVE (CUTOFF=150); BUPRENORPHINE SCREEN,URINE NEGATIVE (CUTOFF=10); METHADONE SCREEN, URINE NEGATIVE (CUTOFF=200); METHAMPHETAMINES SCREEN, URINE NEGATIVE (CUTOFF=500); OXYCODONE SCREEN,URINE NEGATIVE (CUT0FF=100); PROPOXYPHENE SCREEN,URINE NEGATIVE (CUTOFF=300); THC SCREEN,URINE 20 NG/ML PRESUMPTIVE POSITIVE (CUTOFF=50)
[2022-07-25 13:27] LABS: AMPHETAMINES SCREEN, URINE PRESUMPTIVE POSITIVE (CUTOFF=500)
== END 2022-07-25 17:30 | disposition other institution (70) ==
LOC: JD.ED 12:30
DX: F32.A Depression, unspecified (principal); J44.9 Chronic obstructive pulmonary disease, unspecified; E66.9 Obesity, unspecified; Z79.51 Long term (current) use of inhaled steroids
CPT/HCPCS: 36415; 80053; 80306; 80307; 84443; 85025; 99284

== ENCOUNTER 2022-10-27 15:24 | Emergency (ER) | payer MEDICAID ==
[2022-10-27] MEDS ORDERED: Bisacodyl 10 MG Supp RECTAL ONE (16:19)
[2022-10-27] MEDS ORDERED: Polyethylene Glycol/Electrolytes 4,000 ML Bottle PO ONE (16:19)
[2022-10-27] MEDS ORDERED: Dicyclomine 10 MG Cap PO ONE (16:20)
== END 2022-10-27 16:50 | disposition home or self-care (01) ==
LOC: JD.ED 15:24
DX: K59.00 Constipation, unspecified (principal); J45.909 Unspecified asthma, uncomplicated; E66.9 Obesity, unspecified; Z68.44 Body mass index [BMI] 60.0-69.9, adult
CPT/HCPCS: 74019; 99284; A9270; 99283

== ENCOUNTER 2024-03-01 07:00 | Day surgery (SDC) | payer MEDICAID ==
[~2024-03-01 07:00] MED LIST changes: +Dexamethasone 4 MG/ML 5 ML MDV ONE; +Ketorolac 30 MG/ML SDV ONE; -Lactated Ringers 1,000 ML IV SCH; -Lidocaine 1%/Sod Bicarbonate in NS 8.4% 1 ML Syringe IDERM PRN; +Lidocaine 2% 5 ML SDV ONE; +Midazolam 1 MG/ML 2 ML SDV ONE; +Ondansetron 4 MG/2 ML SDV ONE; +Propofol 200 MG/20 ML SDV ONE; +Rocuronium 50 MG/5 ML Vial ONE; +Sodium Chloride 0.9% 10 ML Syringe FLUSH SCH; +Succinylcholine 200 MG/10 ML MDV ONE; +ceFAZolin 2 GM Vial ONE; +dexmedeTOMIDine HCl 200 MCG/2 ML SDV ONE; +fentaNYL 100 MCG/2 ML SDV ONE
[2024-03-01] MEDS: Lactated Ringers 1,000 ML IV SCH (07:45)
[2024-03-01] MEDS: Acetaminophen 325 MG Tab PO ONE (07:53)
[2024-03-01] MEDS: Famotidine 20 MG/2 ML SDV IVPUSH ONE (07:53)
[2024-03-01] MEDS ORDERED: Bupivacaine 0.5% 30 ML SDV ONE (08:25)
[2024-03-01] MEDS: Bupivacaine 0.5% 30 ML SDV ONE (08:33)
[2024-03-01] MEDS ORDERED: Ondansetron 4 MG/2 ML SDV ONE (08:44)
[2024-03-01] MEDS: Acetaminophen/oxyCODONE 325-5 MG Tab PO PRN (12:04)
== END 2024-03-01 14:32 | disposition home or self-care (01) ==
LOC: JD.SDS 07:00
PROVIDERS: ATTEND Podiatrist Foot & Ankle Surgery
DX: M62.462 Contracture of muscle, left lower leg (principal); M72.2 Plantar fascial fibromatosis; M89.9 Disorder of bone, unspecified; J44.9 Chronic obstructive pulmonary disease, unspecified; F32.A Depression, unspecified; Z79.899 Other long term (current) drug therapy
CPT/HCPCS: 28119; 29999; A9270; J0665; J0690; J1100; J1885; J2250; J2405; J2704; J3010; J3490; J7120; J0330